=== PATIENT | female | born 1940 | race Caucasian/White ===

== ENCOUNTER 2020-12-03 10:04 | Emergency (ER) | payer OTHER ==
[2020-12-03 10:16] VITALS: BMI 22.6
[2020-12-03] MEDS ORDERED: ACETAMINOPHEN 1000 MG/100 ML VIAL (NON FORMULARY) IVPB ONE (11:15)
[2020-12-03] MEDS ORDERED: ONDANSETRON 4 MG/2 ML VIAL IVPUSH ONE (11:15)
[2020-12-03] MEDS ORDERED: ONDANSETRON 4 MG/2 ML VIAL ONE (11:19)
[2020-12-03] MEDS ORDERED: ACETAMINOPHEN INJECTION 100 ML IVPB ONE (11:19)
[2020-12-03] MEDS: SODIUM CHLORIDE 0.9% 500 ML INFUS.BAG IV ONE ×2 (11:20→11:59)
[2020-12-03 11:33] LABS: HEMATOCRIT 39.2 % (32.4-45.2); HEMOGLOBIN 13.2 GM/dL (10.7-15.3); MCH 30.4 pg (25.7-33.7); MCHC 33.7 g/dl (32.0-36.0); MEAN CELL VOLUME 90.1 fl (80-96); PLATELET COUNT 152 K/MM3 (134-434); RBC 4.35 M/mm3 (3.60-5.2); RDW 12.9 % (11.6-15.6); WHITE BLOOD COUNT 3.9 K/mm3 (4.0-10.0)
[2020-12-03] MEDS ORDERED: BAMLANIVIMAB 700 MG, ETESEVIMAB 1,400 MG in SODIUM CHLORIDE 250 ML IVPB ONE (11:45)
[2020-12-03 11:56] LABS: BLOOD UREA NITROGEN 14.8 mg/dL (7-18)
[2020-12-03 11:59] LABS: CREATININE 0.7 mg/dL (0.55-1.3)
[2020-12-03 12:00] VITALS: TEMP 97.9
[2020-12-03 12:27] LABS: POTASSIUM 8.9 mmol/L (3.5-5.1)
[2020-12-03 14:00] VITALS: BP 132/60; PULSE 96
[2020-12-03 14:47] LABS: POTASSIUM 4.1 mmol/L (3.5-5.1)
[2020-12-03 14:48] LABS: BLOOD UREA NITROGEN 12.5 mg/dL (7-18); CALCIUM 8.2 mg/dL (8.5-10.1)
[2020-12-03 14:51] LABS: CREATININE 0.5 mg/dL (0.55-1.3)
== END 2020-12-03 14:19 | disposition home or self-care (01) ==
LOC: JCOVINFU 10:04
PROC: 3E0333Z Introduction of Anti-inflammatory into Peripheral Vein, Percutaneous Approach (ICD-10-PCS; principal; 2020-12-03)
PROC: 3E03329 Introduction of Other Anti-infective into Peripheral Vein, Percutaneous Approach (ICD-10-PCS; 2020-12-03)
PROC: 3E033GC Introduction of Other Therapeutic Substance into Peripheral Vein, Percutaneous Approach (ICD-10-PCS; 2020-12-03)
DX: U07.1 COVID-19 (principal)
CPT/HCPCS: 36415; 71046-TC-FY; 80048; 85027; 96374; 96375; 99284-25; J0131; M0239; Q0239; Q0245